=== PATIENT | female | born 1985 | race Caucasian/White ===

== ENCOUNTER 2016-08-20 04:04 | Emergency (ER) | payer BC ==
--- NOTE | 2016-08-20 14:00 | ER ---
ADMIT: 08/20/2016 RM/LOC: ER [facility] MR#: [id number] [id number] BHARTI RIVERA [address] [place] [address] Emergency Room Report SEX: F AGE: 31 : 1985 DATE: 08/20/2016 ADDENDUM: The patient was checked out to me by Dr. Tadeo with results of CAT scan pending. The CT results showed nothing acute other than we do see an ovarian cyst that is consistent with the results found on the ultrasound. The patient was notified of the results of her CT scan and she had already been told that her lab results including CBC, CMP, urinalysis, urine preg were all unremarkable. The patient is feeling significantly better in the Emergency Department, but is not completely symptom free. She does feel comfortable going home. She is discharged home with [address] [place] to be used as needed for pain and some Zofran. She is told she is to return for any other new concerning symptoms. Otherwise, she is to follow up with her primary care physician this week. DIAGNOSES: 1. Abdominal pain. 2. Ovarian cyst. Pete Rebollar MD/ maria m JOB #: [id number] CC: Sukhdeep Tadeo MD, Attending Physician Jaelyn Hinson MD, Family Physician
== END 2016-08-20 07:57 | disposition home or self-care (01) ==
LOC: ER 04:04
DX: N83.202 Unspecified ovarian cyst, left side (principal); Z87.442 Personal history of urinary calculi